=== PATIENT | female | born 1950 | race Caucasian/White ===

== ENCOUNTER 2016-09-08 19:35 | Observation (INO) | payer BC ==
[~2016-09-08] VITALS: Ht 162.6 cm; Wt 81.0 kg
[~2016-09-08 19:35] MED LIST: ALENDRONATE70 MG PO; ANTIVERT PO; ARIXTR SC; BIOTIN5000 MCG PO; BYSTOLIC10 MG OR; CALTRATE 600 OR; CALTRATE 600+D PO; CENTRUM ADULTS1 TAB PO; CENTRUM PO; CITRACA1 PO; CO Q-10100 MG PO; COUMADIN2.5 MG PO; COUMADIN5 MG PO; COUMADIN7.5 MG PO; CYCLOBENZAPR10 MG PO; DIOVAN160 MG PO; DOXYCYC MONO100 MG OR; DRY E-NATUR400 UNIT OR; E400400 UNIT PO; FISH OIL1200 M1 PO; FOLIC ACID1 MG PO; GABAPENTIN100 MG PO; HYDROCHLOROT25 MG OR; IMITREX50 M1 PO; INDERAL LA60 MG OR; IRON27 MG PO; LISINOP/HCTZ1 TA1 PO; LISINOP/HCTZ1 TAB PO; LISINOPRIL10 MG PO; MELATONIN2.5 MG PO; NASONEX50 MCG/AC; NEXIUM40 M1 PO; OMEPRAZOLE20 MG OR; PRAVASTATIN SOD20 MG PO; PROMETHAZINE25 MG OR; SYNTHROID75 MCG PO; VASCEPA1 GM PO; VITAMIN B-121000 MCG PO; VITAMIN D32000 UNI1 PO; XYZAL5 MG OR; ZANTAC150 M1 PO; ZANTAC150 M2 OR; ZITHROMAX250 MG PO; ZOFRAN ODT4 MG PO; ZYRTEC10 MG PO
--- NOTE | 2016-09-08 19:40 | NUR ---
PT TO ROOM VIA WHEELCHAIR
--- NOTE | 2016-09-08 20:16 | NUR ---
PT RESTING QUIETLY ON STRETCHER.
--- NOTE | 2016-09-08 20:22 | NUR ---
PT ALERT/ORIENTED X3, PT STATES SHE STILL FEELS A LITTLE LIGHT HEADED
[2016-09-08 20:28] LABS: ALBUMIN 4.6 g/dL (3.2-5.0); ALKALINE PHOSPHATASE 49 u/l (38-126); ANION GAP 19 (6-22 (CALC)); BILIRUBIN, TOTAL 0.5 mg/dL (0.0-1.4); BUN 10 mg/dL (8-23); BUN/CREATININE RATIO 13 (12-20 (CALC)); CALCIUM 9.4 mg/dL (8.4-10.2); CARBON DIOXIDE 24 mmol/l (22-30); CHLORIDE 100 mmol/l (95-108); CREATININE 0.8 mg/dL (0.5-1.0); GFR > 60 ML/MIN (>=60 (CALC)); GFR FOR AFR.AMER. > 60 ML/MIN (>=60 (CALC)); GLUCOSE 83 mg/dL (82-115); POTASSIUM 3.2 mmol/l (3.5-5.1); SGOT/AST 99 u/l (9-36); SGPT/ALT 56 u/l (11-66); SODIUM 140 mmol/l (137-146); TOTAL PROTEIN 7.9 g/dL (6.3-8.2)
[2016-09-08 20:36] LABS: INTERNATIONAL NORMALIZED RATIO 1.9 RATIO (0.7-1.3); PROTHROMBIN TIME 21.7 SECONDS (9.0-12.5)
--- NOTE | 2016-09-08 20:36 | NUR ---
PT HAS FRIEND AT BEDSIDE, VITAL SIGNS STABLE. PT STATES THE LAST TIME SHE FELT THIS WAS SHE HAD AN INNER EAR INFECTION. DIAGNOSIS OF VERTIGO
[2016-09-08 20:40] LABS: MYOGLOBIN 34 ng/mL (0 - 62)
[2016-09-08 20:43] LABS: HEMATOCRIT 43.6 % (37.0-47.0); HEMOGLOBIN 14.4 g/dl (12.0-16.0); IMMATURE GRANULOCYTES 0.2 % (0.0-1.0); MEAN CORPUSCULAR HGB 30.4 pG CALC (26.0-32.0); RED BLOOD COUNT 4.74 mill/uL (4.20-5.60); RED CELL DISTRI WIDTH 13.3 % (11.5-15.5)
--- NOTE | 2016-09-08 21:01 | NUR ---
OOB TO THE BR TO VOID.
--- NOTE | 2016-09-08 21:12 | NUR ---
PT TAKEN TO CT. SCAN PER STRETCHER. LAUGHING AND TALKING, NO DISTRESS NOTED.
[2016-09-08 21:19] LABS: URINE BILIRUBIN - DIPSTICK NEGATIVE (NEGATIVE); URINE BLOOD DIPSTICK SMALL (NEGATIVE); URINE CLARITY CLEAR; URINE COLOR YELLOW; URINE GLUCOSE - DIPSTICK NEGATIVE (NEGATIVE); URINE KETONE NEGATIVE (NEGATIVE); URINE LEUK ESTERASE NEGATIVE (NEGATIVE); URINE NITRITE - DIPSTICK NEGATIVE (Negative); URINE PH 5.5 (4.5-8.0); URINE PROTEIN - DIPSTICK NEGATIVE (NEG-TRACE); URINE UROBILINOGEN - DIPSTICK 0.2 E.U./dL (0.2)
[2016-09-08 21:28] LABS: URINE SQUAMOUS EPITHELIAL CELL FEW EPI/hpf (0-FEW); URINE WBC 0-2 WBC/hpf (0-5)
--- NOTE | 2016-09-08 22:05 | NUR ---
REPORT RECEIVED FROM DIXIE CARVAJAL. PT RESTING ON THE STERTCHER WITH NO SIGNS OF DISTRESS
--- NOTE | 2016-09-08 22:35 | NUR ---
PT GIVEN TURKEY DEISIWHICH PER REQUEST
--- NOTE | 2016-09-09 00:07 | NUR ---
SR NO ST T CHANGES NO C/O PAIN NO RESP DIFF.CLEAR BREATH SOUNDS A/O X3 APPEARS COMFORTABLE
--- NOTE | 2016-09-09 00:22 | NUR ---
PHONE REPORT TO NURSE MARGARITA THEN TO FLOOR VIA WC
--- NOTE | 2016-09-09 00:33 | NUR ---
PT TRANSFERED TO FLOOR IN STABLE CONDITION VIA WC ACCOMPANIED BY AG,RN;PT AMBULATED WITH STEADY GAIT TO BEDSIDE;VS OBTAINED;PT ORIENTED TO ROOM AND CALL LIGHT SYSTEM AND VERBALIZES UNDERSTANDING;ASSESSMENT COMPLETED;IV SITE TO LAC FLUSHED AND PATENT;TELE MONITOR IN PLACE WITH AN INITIAL READING OF SB 57;SKIN INTACT;PT REPORTS LAST BM TO BE 09/08;PT DENIES ANY PAIN AT THIS TIME;PT EDUCATED TO CALL FOR ASSISTANCE IF NEEDED;SAFETY PRECAUTIONS REINFORCED;BED IN LOWEST POSITION WITH CALL LIGHT IN REACH;WILL CONTINUE TO MONITOR
[2016-09-09 00:35] VITALS: BP 145/77
[2016-09-09 04:58] VITALS: BP 132/72
--- NOTE | 2016-09-09 05:00 | NUR ---
PT RESTING IN SEMI FOWLERS POSITION;PT DENIES ANY PAIN OR DISCOMFORTS;RESPIRATIONS EVEN AND UNLABORED ON RA;VS OBTAINED;PT AMBULATED TO BATHROOM AND BACK WITH STEADY GAIT;TELE MONITOR IN PLACE;PT DENIES ANY OTHER NEEDS AT THIS TIME;BED IN LOWEST POSITION WITH CALL LIGHT IN REACH;WILL CONTINUE TO MONITOR
[2016-09-09 07:50] VITALS: BP 101/78
[2016-09-09] MEDS ORDERED: LEVOTHYROXIN75 MC1 PO (07:53)
--- NOTE | 2016-09-09 09:26 | NUR ---
FAMILY IN TO SEE PT; DENIES PAIN; TELE MONITOR IN PLACE; CALL RIZVI WITHIN REACH; WILL CONTINUE TO MONITOR.
[2016-09-09 11:00] VITALS: BP 138/79
== END 2016-09-09 12:41 | disposition home or self-care (01) | DRG 312 ==
LOC: ENPENDDIS → ED 19:35 → ED-I 09-09 00:01 → ED 09-09 00:22 → MS2 09-09 00:23
PROVIDERS: Emergency Medicine; ADMIT Internal Medicine; ATTEND Internal Medicine
DX: R55 Syncope and collapse (principal); I10 Essential (primary) hypertension; I34.1 Nonrheumatic mitral (valve) prolapse; E03.9 Hypothyroidism, unspecified; J45.909 Unspecified asthma, uncomplicated; I34.0 Nonrheumatic mitral (valve) insufficiency; R00.1 Bradycardia, unspecified; Z79.01 Long term (current) use of anticoagulants; Z86.711 Personal history of pulmonary embolism
CPT/HCPCS: G0378

== ENCOUNTER 2018-04-10 14:04 | Observation (INO) | payer MEDICARE, BC ==
[~2018-04-10] VITALS: Ht 162.6 cm; Wt 86.2 kg
[~2018-04-10 14:04] MED LIST changes: +LEVOTHYROXIN75 MC1 PO
[2018-04-10 15:38] LABS: HEMATOCRIT 45.2 % (37.0-47.0); HEMOGLOBIN 14.6 g/dl (12.0-16.0); IMMATURE GRANULOCYTES 0.2 % (0.0-5.0); MEAN CELL VOLUME 94.8 fL CALC (80.0-100.0); MEAN CORPUSCULAR HGB 30.6 pG CALC (26.0-32.0); MEAN CORPUSCULAR HGB CONC 32.3 g/L CALC (32.0-36.0); NEUT# 6.7 thou/uL (2.00-7.15); RED BLOOD COUNT 4.77 mill/uL (4.20-5.60); RED CELL DISTRI WIDTH 14.1 % (11.5-15.5); URINE BILIRUBIN - DIPSTICK NEGATIVE (NEGATIVE); URINE BLOOD DIPSTICK MODERATE (NEGATIVE); URINE COLOR YELLOW; URINE GLUCOSE - DIPSTICK NEGATIVE (NEGATIVE); URINE KETONE NEGATIVE (NEGATIVE); URINE LEUK ESTERASE NEGATIVE (NEGATIVE); URINE NITRITE - DIPSTICK NEGATIVE (Negative); URINE PROTEIN - DIPSTICK NEGATIVE (NEG-TRACE); URINE SPECIFIC GRAVITY 1.025; URINE UROBILINOGEN - DIPSTICK 0.2 E.U./dL (0.2)
[2018-04-10 15:40] LABS: URINE CLARITY CLEAR
[2018-04-10 15:51] LABS: URINE SQUAMOUS EPITHELIAL CELL FEW EPI/hpf (0-FEW); URINE WBC 0-2 WBC/hpf (0-5)
[2018-04-10 15:52] LABS: URINE MUCUS FEW hpf (NONE-FEW)
[2018-04-10 16:00] LABS: ALBUMIN 3.8 g/dL (3.2-5.0); ALKALINE PHOSPHATASE 48 u/l (38-126); ANION GAP 11 (6-22 (CALC)); BILIRUBIN, TOTAL 0.4 mg/dL (0.0-1.4); BUN 15 mg/dL (8-23); BUN/CREATININE RATIO 24 (12-20 (CALC)); CARBON DIOXIDE 26 mmol/l (22-30); CHLORIDE 104 mmol/l (95-108); CREATININE 0.6 mg/dL (0.5-1.0); GFR > 60 ML/MIN (>=60 (CALC)); GFR FOR AFR.AMER. > 60 ML/MIN (>=60 (CALC)); LIPASE 88 u/l (23-300); POTASSIUM 3.5 mmol/l (3.5-5.1); SGOT/AST 25 u/l (9-36); SODIUM 138 mmol/l (137-146); TOTAL PROTEIN 6.4 g/dL (6.3-8.2)
[2018-04-10] MEDS ORDERED: CO Q-10100 MG PO (16:57)
[2018-04-10] MEDS ORDERED: VITAMIN E400 UNIT PO (16:58)
[2018-04-10] MEDS ORDERED: KLOR-CON M1010 MEQ PO (17:00)
[2018-04-10] MEDS ORDERED: ATORVASTATIN CA10 MG PO (17:00)
[2018-04-10] MEDS ORDERED: FOSAMAX PLUS PO (17:04)
[2018-04-10] MEDS ORDERED: OMEPRAZOLE10 MG PO (17:05)
[2018-04-10] MEDS ORDERED: XIIDRA5 % OU (17:06)
[2018-04-10 20:05] VITALS: BP 141/72
[2018-04-11 05:44] VITALS: BP 113/73
[2018-04-11 08:02] VITALS: BP 153/86
[2018-04-11 08:06] VITALS: BP 153/86
[2018-04-11 11:19] LABS: HEMATOCRIT 42.9 % (37.0-47.0); HEMOGLOBIN 14.2 g/dl (12.0-16.0); IMMATURE GRANULOCYTES 0.4 % (0.0-5.0); MEAN CELL VOLUME 93.9 fL CALC (80.0-100.0); MEAN CORPUSCULAR HGB 31.1 pG CALC (26.0-32.0); MEAN CORPUSCULAR HGB CONC 33.1 g/L CALC (32.0-36.0); NEUT# 3.5 thou/uL (2.00-7.15); RED BLOOD COUNT 4.57 mill/uL (4.20-5.60); RED CELL DISTRI WIDTH 14.1 % (11.5-15.5)
[2018-04-11 11:46] LABS: INTERNATIONAL NORMALIZED RATIO 2.5 RATIO (0.7-1.3); PROTHROMBIN TIME 26.2 SECONDS (9.0-12.5)
[2018-04-11 11:47] LABS: BUN 9 mg/dL (8-23); BUN/CREATININE RATIO 12 (12-20 (CALC)); CARBON DIOXIDE 27 mmol/l (22-30); CREATININE 0.7 mg/dL (0.5-1.0); GFR > 60 ML/MIN (>=60 (CALC)); GFR FOR AFR.AMER. > 60 ML/MIN (>=60 (CALC)); POTASSIUM 3.8 mmol/l (3.5-5.1); SODIUM 143 mmol/l (137-146)
[2018-04-11 11:49] LABS: ANION GAP 9 (6-22 (CALC)); CHLORIDE 111 mmol/l (95-108)
== END 2018-04-11 14:24 | disposition home or self-care (01) ==
LOC: ED 14:04 → ED-I 18:30 → ED 19:22 → MS2 19:23
PROVIDERS: Family Medicine; Internal Medicine Nephrology; ADMIT Internal Medicine; ATTEND Internal Medicine
DX: R11.2 Nausea with vomiting, unspecified (principal); R19.7 Diarrhea, unspecified; R10.13 Epigastric pain; I10 Essential (primary) hypertension; E78.5 Hyperlipidemia, unspecified; E03.9 Hypothyroidism, unspecified; I34.1 Nonrheumatic mitral (valve) prolapse; J45.909 Unspecified asthma, uncomplicated; M25.531 Pain in right wrist; G43.909 Migraine, unspecified, not intractable, without status migrainosus; M85.80 Other specified disorders of bone density and structure, unspecified site; E53.8 Deficiency of other specified B group vitamins; Z79.01 Long term (current) use of anticoagulants; Z86.711 Personal history of pulmonary embolism; W19.XXXA Unspecified fall, initial encounter
CPT/HCPCS: Q9967

== ENCOUNTER 2018-05-31 08:23 | Day surgery (SDC) | payer MEDICARE, BC ==
[~2018-05-31] VITALS: Ht 165.1 cm; Wt 83.9 kg
[~2018-05-31 08:23] MED LIST changes: +ANTIVERT12.5 MG PO; +ATORVASTATIN CA10 MG PO; +BIOTIN MAXI10000 MC1 PO; +FOSAMAX PLUS PO; +KLOR-CON M1010 MEQ PO; +OMEPRAZOLE10 MG PO; +PRESERVISION ARED1 PO; +VITAMIN D35000 UNIT PO; +VITAMIN E400 UNIT PO; +XIIDRA5 % OU; +[UNRECOGNIZED DRUG - OTHER] PO; +[UNRECOGNIZED DRUG - OTHER] PO
[2018-05-31] MEDS ORDERED: CARAFATE1 GM PO (10:08)
[2018-05-31 10:25] VITALS: BP 144/81
== END 2018-05-31 10:30 | disposition home or self-care (01) ==
LOC: ENDO 08:23 → ORM 10:45
PROVIDERS: ATTEND Surgery
PROC: 0DB78ZX Excision of Stomach, Pylorus, Via Natural or Artificial Opening Endoscopic, Diagnostic (ICD-10-PCS; principal; 2018-05-31)
DX: K21.9 Gastro-esophageal reflux disease without esophagitis (principal); K29.70 Gastritis, unspecified, without bleeding; Z86.711 Personal history of pulmonary embolism; Z79.01 Long term (current) use of anticoagulants

== ENCOUNTER → 2018-07-17 | Outpatient (REF) | payer MEDICARE, BC ==
[~2018-07-17] MED LIST changes: +CARAFATE1 GM PO
[2018-07-17 12:07] LABS: MEAN CELL VOLUME 95.6 fL CALC (80.0-100.0); MEAN CORPUSCULAR HGB 30.3 pG CALC (26.0-32.0); MEAN CORPUSCULAR HGB CONC 31.7 g/L CALC (32.0-36.0); RED BLOOD COUNT 3.17 mill/uL (4.20-5.60); RED CELL DISTRI WIDTH 13.7 % (11.5-15.5)
[2018-07-17 12:08] LABS: HEMATOCRIT 30.3 % (37.0-47.0); HEMOGLOBIN 9.6 g/dl (12.0-16.0)
[2018-07-17 12:37] LABS: INTERNATIONAL NORMALIZED RATIO 1.1 RATIO (0.7-1.3); PROTHROMBIN TIME 11.8 SECONDS (9.0-12.5)
== END | disposition home or self-care (01) ==
LOC: LAB 11:45
PROVIDERS: ATTEND Internal Medicine
DX: T14.8XXA Other injury of unspecified body region, initial encounter (principal); Z79.01 Long term (current) use of anticoagulants

== ENCOUNTER → 2018-07-25 | Outpatient (REF) | payer MEDICARE, BC ==
[2018-07-25 09:09] LABS: HEMATOCRIT 35.5 % (37.0-47.0); HEMOGLOBIN 11.1 g/dl (12.0-16.0); IMMATURE GRANULOCYTES 0.6 % (0.0-5.0); MEAN CELL VOLUME 95.7 fL CALC (80.0-100.0); MEAN CORPUSCULAR HGB 29.9 pG CALC (26.0-32.0); MEAN CORPUSCULAR HGB CONC 31.3 g/L CALC (32.0-36.0); NEUT# 4.41 thou/uL (2.00-7.15); RED BLOOD COUNT 3.71 mill/uL (4.20-5.60); RED CELL DISTRI WIDTH 14.1 % (11.5-15.5)
[2018-07-25 10:07] LABS: ANION GAP 13 (6-22 (CALC)); BUN 14 mg/dL (8-23); BUN/CREATININE RATIO 22 (12-20 (CALC)); CARBON DIOXIDE 28 mmol/l (22-30); CHLORIDE 102 mmol/l (95-108); CREATININE 0.7 mg/dL (0.5-1.0); GFR > 60 ML/MIN (>=60 (CALC)); GFR FOR AFR.AMER. > 60 ML/MIN (>=60 (CALC)); POTASSIUM 4.3 mmol/l (3.5-5.1); SODIUM 138 mmol/l (137-146)
== END | disposition home or self-care (01) ==
LOC: LAB 07:58
PROVIDERS: ATTEND Nurse Practitioner
DX: I10 Essential (primary) hypertension (principal)

== ENCOUNTER 2019-05-30 | Day surgery (SDC) | payer MEDICARE, BC ==
[~2019-05-30] MED LIST changes: +B-125000 MCG SL; +HYDROCHLOROT25 MG PO; +KLOR-CON SPRIN10 MEQ PO; +ZESTRIL10 M1 PO
[2019-05-30] MEDS ORDERED: LISINOP/HCTZ1 TA2 PO (08:16)
== END 2019-05-30 10:15 | disposition home or self-care (01) ==
PROC: 0DJD8ZZ Inspection of Lower Intestinal Tract, Via Natural or Artificial Opening Endoscopic (ICD-10-PCS; principal; 2019-05-30)
DX: Z12.11 Encounter for screening for malignant neoplasm of colon (principal); K57.30 Diverticulosis of large intestine without perforation or abscess without bleeding; Z86.010 Personal history of colon polyps; Z86.711 Personal history of pulmonary embolism; Z79.01 Long term (current) use of anticoagulants

== ENCOUNTER 2019-07-17 | Emergency (ER) | payer MEDICARE, BC ==
[~2019-07-17] MED LIST changes: +LISINOP/HCTZ1 TA2 PO
[2019-07-17 21:41] LABS: HEMATOCRIT 38.6 % (37.0-47.0); HEMOGLOBIN 12.8 g/dl (12.0-16.0); IMMATURE GRANULOCYTES 0.3 % (0.0-5.0); MEAN CELL VOLUME 90.8 fL CALC (80.0-100.0); MEAN CORPUSCULAR HGB 30.1 pG CALC (26.0-32.0); MEAN CORPUSCULAR HGB CONC 33.2 g/L CALC (32.0-36.0); NEUT# 4.95 thou/uL (2.00-7.15); RED BLOOD COUNT 4.25 mill/uL (4.20-5.60); RED CELL DISTRI WIDTH 13.2 % (11.5-15.5)
[2019-07-17 22:00] LABS: ALBUMIN 4.3 g/dL (3.2-5.0); ALKALINE PHOSPHATASE 54 u/l (38-126); ANION GAP 9 (6-22 (CALC)); BILIRUBIN, TOTAL 0.4 mg/dL (0.0-1.4); BUN 10 mg/dL (8-23); BUN/CREATININE RATIO 17 (12-20 (CALC)); CARBON DIOXIDE 31 mmol/l (22-30); CHLORIDE 99 mmol/l (95-108); CREATININE 0.6 mg/dL (0.5-1.0); GFR > 60 ML/MIN (>=60 (CALC)); GFR FOR AFR.AMER. > 60 ML/MIN (>=60 (CALC)); SGOT/AST 35 u/l (9-36); SODIUM 136 mmol/l (137-146); TOTAL PROTEIN 7.3 g/dL (6.3-8.2)
[2019-07-17] MEDS ORDERED: AMOX/K CLAV875 M1 PO (22:55)
[2019-07-17] MEDS ORDERED: HYDROCO/APAP1 TA9 PO (22:55)
== END 2019-07-17 23:40 | disposition home or self-care (01) ==
DX: H65.01 Acute serous otitis media, right ear (principal); R42 Dizziness and giddiness; E87.6 Hypokalemia; I10 Essential (primary) hypertension; E03.9 Hypothyroidism, unspecified; Z51.81 Encounter for therapeutic drug level monitoring; Z79.01 Long term (current) use of anticoagulants

== ENCOUNTER 2022-01-25 17:48 | Emergency (ER) | payer MEDICARE, BC ==
[~2022-01-25] VITALS: Ht 162.6 cm; Wt 75.0 kg
[~2022-01-25 17:48] MED LIST changes: +AMOX/K CLAV875 M1 PO; +HYDROCO/APAP1 TA9 PO
[2022-01-25 21:48] VITALS: BP 180/90
== END 2022-01-25 21:53 | disposition home or self-care (01) ==
LOC: ED 17:48
DX: S40.011A Contusion of right shoulder, initial encounter (principal); S70.01XA Contusion of right hip, initial encounter; I10 Essential (primary) hypertension; E78.5 Hyperlipidemia, unspecified; E03.9 Hypothyroidism, unspecified; Z86.711 Personal history of pulmonary embolism; I34.1 Nonrheumatic mitral (valve) prolapse; W18.39XA Other fall on same level, initial encounter; Y92.512 Supermarket, store or market as the place of occurrence of the external cause

== ENCOUNTER 2024-07-14 22:31 | Emergency (ER) | payer MEDICARE, BC ==
[~2024-07-14] VITALS: Ht 162.6 cm; Wt 72.0 kg
[2024-07-14] MEDS ORDERED: MORPHINE SULFATE 4 MG/ML VIAL IV STA (23:13)
[2024-07-14] MEDS ORDERED: SODIUM CHLORIDE 0.9% 1,000 ML IV STA (23:13)
[2024-07-14] MEDS ORDERED: PROMETHAZINE HCL 25 MG/ML AMP IV STA (23:13)
[2024-07-14] MEDS ORDERED: KETOROLAC TROMETHAMINE 30 MG/ML SDV IV ONE (23:15)
[2024-07-14 23:43] LABS: BASO% 0.3 % (0-3); EOS% 0.9 % (0-8); HEMATOCRIT 42.1 % (37.0-47.0); HEMOGLOBIN 13.6 g/dl (12.0-16.0); IMMATURE GRANULOCYTES 0.2 % (0.0-5.0); LYMPH% 13.4 % (15-41); MEAN CELL VOLUME 93.6 fL CALC (80.0-100.0); MEAN CORPUSCULAR HGB 30.2 pG CALC (26.0-32.0); MEAN CORPUSCULAR HGB CONC 32.3 g/dL CAL (32.0-36.0); MONO% 8.9 % (2-13); NEUT# 8.53 thou/uL (2.00-7.15); NEUT% 76.3 % (42-76); RED BLOOD COUNT 4.5 mill/uL (4.20-5.60); RED CELL DISTRI WIDTH 12.5 % (11.5-15.5)
[2024-07-14 23:44] VITALS: BP 178/91
[2024-07-14 23:53] LABS: ALBUMIN 4.3 g/dL (3.2-5.0); CREATININE 0.5 mg/dL (0.5-1.0); POTASSIUM 3.7 mmol/l (3.5-5.1); TOTAL PROTEIN 6.9 g/dL (6.3-8.2)
[2024-07-15] VITALS: BP 167/87
[2024-07-15 00:04] LABS: BILIRUBIN, TOTAL 0.4 mg/dL (0.02-1.3)
[2024-07-15 00:07] LABS: URINE BILIRUBIN - DIPSTICK Negative (NEGATIVE); URINE BLOOD DIPSTICK Trace-intact (NEGATIVE); URINE COLOR Yellow; URINE GLUCOSE - DIPSTICK Negative (NEGATIVE); URINE KETONE Negative (NEGATIVE); URINE LEUK ESTERASE Negative (NEGATIVE); URINE NITRITE - DIPSTICK Negative (Negative); URINE PROTEIN - DIPSTICK Negative (NEG-TRACE); URINE SPECIFIC GRAVITY 1.015; URINE UROBILINOGEN - DIPSTICK 0.2 E.U./dL (0.2)
[2024-07-15] MEDS ORDERED: ALUM & MAG HYDROX-SIMETHICONE 30 ML PO ONE (00:25)
[2024-07-15] MEDS ORDERED: FAMOTIDINE 20 MG/TAB PO ONE (00:25)
[2024-07-15] MEDS ORDERED: CIPROFLOXACIN HCL 500 MG/TAB PO ONE (02:25)
[2024-07-15] MEDS ORDERED: IBUPROFEN600 MG PO (02:28)
[2024-07-15] MEDS ORDERED: CIPROFLOXACN500 MG PO (02:28)
[2024-07-15] MEDS ORDERED: LORTAB 5/3255 MG PO (02:28)
[2024-07-15] MEDS ORDERED: METRONIDAZOLE500 MG PO (02:28)
[2024-07-15] MEDS ORDERED: HYDROcodone 5 MG/Acetaminophen 325 MG/COMBO PO ONE (02:30)
[2024-07-15] MEDS ORDERED: metroNIDAZOLE 500 MG/TAB PO ONE (02:30)
[2024-07-15] MEDS ORDERED: IBUPROFEN 600 MG/TAB PO ONE (02:30)
[2024-07-15 02:59] VITALS: BP 167/87
== END 2024-07-15 02:59 | disposition home or self-care (01) ==
LOC: ED 22:31
PROVIDERS: Family Medicine
DX: K57.32 Diverticulitis of large intestine without perforation or abscess without bleeding (principal); I10 Essential (primary) hypertension; E78.5 Hyperlipidemia, unspecified; I34.1 Nonrheumatic mitral (valve) prolapse; E03.9 Hypothyroidism, unspecified; Z86.711 Personal history of pulmonary embolism
CPT/HCPCS: J2550; Q9967